=== PATIENT | female | born 1985 | race Two or more races ===

== ENCOUNTER 2019-08-14 12:45 | Inpatient (IN) | payer OTHER ==
[~2019-08-14] VITALS: Ht 162.6 cm; Wt 78.5 kg
[2019-08-29] MEDS ORDERED: PROBIOTIC1 EAC2 PO (01:09)
[2019-08-29] MEDS ORDERED: PRENATAL TABLE1 EAC1 PO (01:09)
== END 2019-08-31 10:42 | disposition home or self-care (01) | DRG 768 ==
LOC: LDR 08-29 01:06 → SURG-SUITE 08-29 12:38 → OB/GYN 09-02 12:45
PROVIDERS: ADMIT Obstetrics & Gynecology
PROC: 10D07Z6 Extraction of Products of Conception, Vacuum, Via Natural or Artificial Opening (ICD-10-PCS; principal; 2019-08-29)
PROC: 0DQR0ZZ Repair Anal Sphincter, Open Approach (ICD-10-PCS; 2019-08-29)
PROC: 0W8NXZZ Division of Female Perineum, External Approach (ICD-10-PCS; 2019-08-29)
PROC: 4A1HXCZ Monitoring of Products of Conception, Cardiac Rate, External Approach (ICD-10-PCS; 2019-08-29)
PROC: 3E033VJ Introduction of Other Hormone into Peripheral Vein, Percutaneous Approach (ICD-10-PCS; 2019-08-29)
PROC: 4A033R1 Measurement of Arterial Saturation, Peripheral, Percutaneous Approach (ICD-10-PCS; 2019-08-29)
DX: O70.21 Third degree perineal laceration during delivery, IIIa (principal); O66.5 Attempted application of vacuum extractor and forceps; Z37.0 Single live birth; Z3A.39 39 weeks gestation of pregnancy; Z22.330 Carrier of Group B streptococcus

== ENCOUNTER 2023-07-24 10:11 | Emergency (ER) | payer OTHER ==
[~2023-07-24] VITALS: Ht 162.6 cm; Wt 65.8 kg
[~2023-07-24 10:11] MED LIST: PRENATAL TABLE1 EAC1 PO; PROBIOTIC1 EAC2 PO
[2023-07-24 12:18] LABS: HEMOGLOBIN 12.8 g/dL (12.0-15.00); MEAN CELL VOLUME 90.5 fL (80.00-100.00); MEAN CORPUSCULAR HEMOGLOBIN 30.5 pg (27.00-32.0); MEAN CORPUSCULAR HGB CONC 33.7 g/dl (32.0-36.0); PLATELET COUNT 478 K/uL (150-450); RED CELL DISTRIBUTION WIDTH 12.8 % (11.5-14.5); URINE APPEARANCE Clear; URINE BILIRRUBIN Negative (NEGATIVE); URINE BLOOD Small; URINE COLOR Yellow; URINE GLUCOSE Negative (NEGATIVE); URINE LEUKOCYTE Negative; URINE NITRATE Negative; URINE PROTEIN Negative (NEGATIVE); URINE UROBILINOGEN 0.2 E.U./dl
[2023-07-24 12:20] LABS: URINE BACTERIA 51.5 uL (0.0-1933); URINE EPITHELIAL CELLS 4.2 uL (0.0-38.8); URINE RBC 41.6 uL (0.0-20.8)
[2023-07-24 12:36] LABS: URINE WBC 1.2 uL (0.0-23.2)
[2023-07-24 13:12] LABS: CALCIUM 9.3 mg/dL (8.5-10.1); CREATININE SERUM 0.64 mg/dL (0.55-1.02); GFR 104.41; POTASSIUM 4.38 mEq/L (3.5-5.1)
== END 2023-07-24 17:19 | disposition home or self-care (01) ==
LOC: ER 10:12
PROVIDERS: General Practice
DX: O20.8 Other hemorrhage in early pregnancy (principal); Z3A.01 Less than 8 weeks gestation of pregnancy

== ENCOUNTER 2024-09-12 08:51 | Emergency (ER) | payer OTHER ==
[~2024-09-12] VITALS: Ht 162.6 cm; Wt 68.9 kg
[2024-09-12 10:39] LABS: HEMATOCRIT 39.3 % (36.0-45.00); HEMOGLOBIN 13.4 g/dL (12.0-15.00); MEAN CORPUSCULAR HEMOGLOBIN 31.3 pg (27.00-32.0); MEAN CORPUSCULAR HGB CONC 34.1 g/dl (32.0-36.0); PLATELET COUNT 356 K/uL (150-450); RED BLOOD COUNT 4.27 M/uL (4.00-6.00); RED CELL DISTRIBUTION WIDTH 13.4 % (11.5-14.5)
[2024-09-12 11:01] LABS: URINE APPEARANCE Error; URINE BILIRRUBIN Negative (NEGATIVE); URINE BLOOD Negative; URINE COLOR Yellow; URINE GLUCOSE Negative (NEGATIVE); URINE KETONE Negative (NEGATIVE); URINE LEUKOCYTE Negative; URINE NITRATE Negative; URINE PROTEIN Negative (NEGATIVE); URINE UROBILINOGEN 0.2 E.U./dl
[2024-09-12 11:02] LABS: CALCIUM 9.2 mg/dL (8.5-10.1); CREATININE SERUM 0.71 mg/dL (0.55-1.02); GFR 92.13; POTASSIUM 4.49 mEq/L (3.5-5.1)
[2024-09-12 11:05] LABS: URINE RBC 6.6 uL (0.0-20.8)
[2024-09-12 11:44] LABS: URINE BACTERIA 1.2 uL (0.0-1933); URINE WBC 0.3 uL (0.0-23.2)
== END 2024-09-12 12:21 | disposition home or self-care (01) ==
LOC: ER 08:54
DX: B34.9 Viral infection, unspecified (principal); R09.81 Nasal congestion; R53.81 Other malaise; Z20.822 Contact with and (suspected) exposure to COVID-19